=== PATIENT | female | born 1960 | race Caucasian/White ===

== ENCOUNTER 2017-07-19 14:56 | Inpatient (IN) | payer BC ==
[~2017-07-19] VITALS: Ht 162.6 cm; Wt 104.5 kg
[~2017-07-19 14:56] MED LIST: ABILIFY5 MG PO; BENADRYL 50MG C50 MG PO; BUMEX 1MG TA1 MG/TA1 PO; CELEXA 20MG20 MG/TAB PO; COLCRYS0.6 MG PO; LIPITOR 40MG TA40 MG PO; LISINOPRIL20 MG PO; TRAZODO50 MG PO; VOLTAREN 75 DR75 MG PO; WELLBUTRIN XL300 M1 PO; ZESTORETIC 25 M1 TAB PO; ZYRTEC 10MG
[2017-07-19] MEDS ORDERED: FOSAMAX 70MG TA70 MG (16:26)
[2017-07-19 16:42] LABS: BASO % 0.6 % (0.0-2.0); EOS # 0.1 (0.0-0.7); EOS % 1.3 % (0-4.0); GRAN % 65.1 % (42.2-75.2); LYMPH # 1.4 (1.2-3.4); MEAN CELL VOLUME 93 fl (80.0-100.0); MEAN CORPUSCULAR HGB CONC 34 g/dl (33.0-37.0); MONO # 0.6 (0.1-0.6); MONO % 9.5 % (1.7-9.3); PLATELET COUNT 195 K/mm3 (130-400); RED BLOOD COUNT 3.53 M/mm3 (4.10-5.30); REDCELL DISTRIBUTION WIDTH-CV 13.8 % (11.5-14.5); WHITE BLOOD COUNT 6.2 K/mm3 (4.8-10.8)
[2017-07-19 16:50] LABS: HEMATOCRIT 32.8 % (37.0-47.0); HEMOGLOBIN 11.2 g/dl (12.5-16.0); MEAN CORPUSCULAR HEMOGLOBIN 32 pg (27.0-31.0)
[2017-07-19 16:59] LABS: ADJUSTED CALCIUM 9.9 mg/dL (8.4-10.2); ALANINE AMINOTRANSFERASE 25 U/L (9-52); ALBUMIN 4.2 gm/dL (3.5-5.0); ALKALINE PHOSPHATASE 104 U/L (50-136); ANION GAP 18 mmol/L (7-16); BILIRUBIN,TOTAL 0.6 mg/dL (0.0-1.0); BLOOD UREA NITROGEN 80 mg/dL (7-17); CALCIUM 10.1 mg/dL (8.4-10.2); CARBON DIOXIDE 17 mmol/L (22-30); CHLORIDE 102 mmol/L (98-107); CREATININE, serum 3.06 mg/dL (0.52-1.25); GLUCOSE 95 mg/dL (74-106); MAGNESIUM 1.6 mg/dL (1.6-2.3); POTASSIUM 3.1 mmol/L (3.4-5.0); SODIUM 137 mmol/L (137-145); TOTAL PROTEIN 7.4 gm/dL (6.4-8.2)
[2017-07-19 17:12] LABS: TROPONIN-I < 0.012 ng/mL (0.000-0.034)
[2017-07-19 17:21] VITALS: BP 127/75; PULSE 92; TEMP 98.3
[2017-07-19 18:27] LABS: PH 5 (5-8); SQUAMOUS EPITHELIAL 0-2 /hpf; URINE APPEARANCE Clear; URINE BACTERIA None Seen /hpf; URINE BILIRUBIN Negative (NEGATIVE); URINE BLOOD Negative (NEGATIVE); URINE COLOR Yellow; URINE GLUCOSE Negative (NEGATIVE); URINE KETONE Negative (NEGATIVE); URINE RBC 0-2 /hpf; URINE UROBILINOGEN Negative (NEGATIVE)
[2017-07-19 19:23] VITALS: BP 89/47; PULSE 87; TEMP 97.8
[2017-07-19 19:56] VITALS: BP 135/63; PULSE 80; TEMP 98
[2017-07-19 22:27] VITALS: BP 88/53; PULSE 82; TEMP 97.5
[2017-07-19 23:58] VITALS: BP 152/58; PULSE 68; TEMP 98.1
[2017-07-20 03:37] VITALS: BP 91/47; PULSE 75; TEMP 98.1
[2017-07-20 07:04] LABS: BASO % 0.5 % (0.0-2.0); EOS # 0.1 (0.0-0.7); EOS % 2.5 % (0-4.0); GRAN % 49.9 % (42.2-75.2); LYMPH # 1.4 (1.2-3.4); LYMPH % 34.1 % (20.0-51.0); MEAN CELL VOLUME 94 fl (80.0-100.0); MEAN CORPUSCULAR HGB CONC 33 g/dl (33.0-37.0); MONO # 0.5 (0.1-0.6); MONO % 12.3 % (1.7-9.3); PLATELET COUNT 158 K/mm3 (130-400); RED BLOOD COUNT 3.37 M/mm3 (4.10-5.30); REDCELL DISTRIBUTION WIDTH-CV 13.7 % (11.5-14.5); WHITE BLOOD COUNT 4.1 K/mm3 (4.8-10.8)
[2017-07-20 07:08] LABS: HEMATOCRIT 31.6 % (37.0-47.0); HEMOGLOBIN 10.4 g/dl (12.5-16.0); MEAN CORPUSCULAR HEMOGLOBIN 31 pg (27.0-31.0)
[2017-07-20 07:15] LABS: ANION GAP 12 mmol/L (7-16); BLOOD UREA NITROGEN 64 mg/dL (7-17); CALCIUM 9.5 mg/dL (8.4-10.2); CARBON DIOXIDE 20 mmol/L (22-30); CHLORIDE 108 mmol/L (98-107); CREATININE, serum 1.67 mg/dL (0.52-1.25); GLUCOSE 96 mg/dL (74-106); MAGNESIUM 1.7 mg/dL (1.6-2.3); SODIUM 139 mmol/L (137-145)
[2017-07-20 07:17] LABS: POTASSIUM 2.8 mmol/L (3.4-5.0)
[2017-07-20 07:31] VITALS: BP 100/49; PULSE 74; TEMP 97.7
[2017-07-20 07:34] LABS: TROPONIN-I < 0.012 ng/mL (0.000-0.034)
[2017-07-20 11:32] VITALS: BP 108/59; PULSE 75; TEMP 98.3
[2017-07-20 15:27] VITALS: BP 103/58; BP 133/56; PULSE 61; PULSE 83; TEMP 97.6; TEMP 97.7
[2017-07-20 20:37] LABS: URINE 24 HOUR CREATININE 1.8 gm/24 hr (0.8-1.8)
[2017-07-20 20:38] LABS: CREATININE, serum 1.07 mg/dL (0.52-1.25); FRACTIONAL EXCRETION OF NA+ 2.3 %
[2017-07-20 20:47] VITALS: BP 110/57; PULSE 77; TEMP 98.6
[2017-07-20 22:37] VITALS: BP 108/56; PULSE 72; TEMP 98.5
[2017-07-21 03:52] VITALS: BP 109/63; PULSE 66; TEMP 98.2
[2017-07-21 06:12] VITALS: BP 141/82; PULSE 75; TEMP 98.3
[2017-07-21 07:29] VITALS: BP 100/56; PULSE 73; TEMP 98.4
[2017-07-21 10:04] VITALS: BP 122/71; PULSE 78; TEMP 98.1
[2017-07-21 11:42] VITALS: BP 110/65; PULSE 85; TEMP 98.3
[2017-07-21 15:47] VITALS: BP 105/73; PULSE 73; TEMP 98
== END 2017-07-21 17:50 | disposition home or self-care (01) | DRG 684 ==
LOC: MEDICAL 14:56
PROVIDERS: Physician Assistant
DX: N17.9 Acute kidney failure, unspecified (principal); I10 Essential (primary) hypertension; E87.6 Hypokalemia; F10.20 Alcohol dependence, uncomplicated; F32.9 Major depressive disorder, single episode, unspecified; Z79.1 Long term (current) use of non-steroidal anti-inflammatories (NSAID)
CPT/HCPCS: 99222-AI; 99233-AI; 99239; J0696; J1644; J3411; J3475; J7030; J7040

== ENCOUNTER 2017-09-26 20:39 | Emergency (ER) | payer BC ==
[~2017-09-26] VITALS: Ht 162.6 cm; Wt 104.5 kg
[~2017-09-26 20:39] MED LIST changes: +FOSAMAX 70MG TA70 MG
[2017-09-26 20:43] VITALS: BP 134/84; TEMP 98.3
[2017-09-26 21:32] VITALS: PULSE 85
== END 2017-09-26 21:34 | disposition home or self-care (01) ==
LOC: COL.ER 20:39
DX: I80.3 Phlebitis and thrombophlebitis of lower extremities, unspecified (principal); I10 Essential (primary) hypertension; E78.5 Hyperlipidemia, unspecified; F32.9 Major depressive disorder, single episode, unspecified; M10.9 Gout, unspecified

== ENCOUNTER → 2018-03-17 | Outpatient (CLI) | payer BC ==
[~2018-03-17] MED LIST changes: +AMBIEN 10MG10 MG PO; +BRINTELLIX10; +CALCIUM CARBON650 M2; +MULTI VITAMINS1 TAB PO; +PRILOTC; +ZOCOR 20MG20 MG PO
== END ==
LOC: MC.RAD 11:09
DX: Z12.31 Encounter for screening mammogram for malignant neoplasm of breast (principal)

== ENCOUNTER 2018-03-18 07:25 | Day surgery (SDC) | payer BC ==
[~2018-03-18] VITALS: Ht 162.6 cm; Wt 108.9 kg
[~2018-03-18 07:25] MED LIST changes: -AMBIEN 10MG10 MG PO; -BRINTELLIX10; -CALCIUM CARBON650 M2; -MULTI VITAMINS1 TAB PO; -PRILOTC; -ZOCOR 20MG20 MG PO
[2018-03-18] MEDS ORDERED: BRINTELLIX10 (07:47)
[2018-03-18] MEDS ORDERED: ZOCOR 20MG20 MG PO (07:48)
[2018-03-18] MEDS ORDERED: AMBIEN 10MG10 MG PO (07:48)
[2018-03-18] MEDS ORDERED: PRILOTC (07:48)
[2018-03-18] MEDS ORDERED: CALCIUM CARBON650 M2 (07:49)
[2018-03-18] MEDS ORDERED: MULTI VITAMINS1 TAB PO (07:49)
[2018-03-18 08:02] VITALS: BP 119/82; PULSE 85; TEMP 98.2
[2018-03-18 09:36] VITALS: BP 106/71; PULSE 67; TEMP 98.1
[2018-03-18 09:45] VITALS: BP 107/75; PULSE 70
[2018-03-18 10:00] VITALS: BP 103/66; PULSE 72
[2018-03-18 10:15] VITALS: BP 100/64; PULSE 72
[2018-03-18 14:18] VITALS: BP 108/70; PULSE 64
== END 2018-03-18 10:30 | disposition home or self-care (01) ==
LOC: SDCO 07:25
DX: Z12.11 Encounter for screening for malignant neoplasm of colon (principal); I10 Essential (primary) hypertension; E78.00 Pure hypercholesterolemia, unspecified; M81.0 Age-related osteoporosis without current pathological fracture; K57.30 Diverticulosis of large intestine without perforation or abscess without bleeding; K64.0 First degree hemorrhoids
CPT/HCPCS: OP; J2250; J3010; J7030

== ENCOUNTER → 2018-05-23 | Outpatient (CLI) | payer BC ==
[~2018-05-23] MED LIST changes: +AMBIEN 10MG10 MG PO; +BRINTELLIX10; +CALCIUM CARBON650 M2; +MULTI VITAMINS1 TAB PO; +PRILOTC; +ZOCOR 20MG20 MG PO
== END ==
LOC: COL.RAD 07:19
DX: R10.11 Right upper quadrant pain (principal); R10.13 Epigastric pain

== ENCOUNTER 2018-12-17 07:39 | Outpatient (CLI) | payer BC ==
[2018-12-17] VITALS (10 sets, daily range): BP systolic 99–126; BP diastolic 68–85; PULSE 63–69
[~2018-12-17] VITALS: Ht 162.6 cm; Wt 106.2 kg
[~2018-12-17 07:39] MED LIST changes: -CALCIUM CARBON650 M2; +CALCIUM CARBON650 M2 PO; +LAMICTAL 100MG100 MG PO; +LEXAPRO 10MG10 MG PO; -PRILOTC; +PRILOTC PO
[2018-12-17] MEDS ORDERED: LEXAPRO20 MG PO (08:00)
[2018-12-17] MEDS ORDERED: LAMICTAL 100MG100 MG PO (08:00)
[2018-12-17] MEDS ORDERED: FOSAMAX 70MG TA70 MG PO (08:01)
[2018-12-17] MEDS ORDERED: AMOXICILLIN 8751 TAB PO (08:13)
--- NOTE | 2018-12-17 08:50 | NUR ---
pt to ct per ambulation. Pt positioned prone on ct table with monitors applied and O2 on at 2l/nc.
--- NOTE | 2018-12-17 09:13 | NUR ---
specimen obtained by Dr Kaur and sent to lab in syringe. Specimen labeled.
--- NOTE | 2018-12-17 10:00 | NUR ---
Pt out to car per wheelchair denies complaints at this time. Pt up and into wheelchair without difficulty.
== END 2018-12-17 16:00 | disposition home or self-care (01) ==
LOC: COL.RAD 07:39
DX: J86.9 Pyothorax without fistula (principal)
CPT/HCPCS: J2250; J3010

== ENCOUNTER → 2019-03-30 | Outpatient (CLI) | payer BC ==
[~2019-03-30] MED LIST changes: +AMOXICILLIN 8751 TAB PO; +FOSAMAX 70MG TA70 MG PO; +LEXAPRO20 MG PO
== END ==
LOC: COL.RAD 08:27
DX: J86.9 Pyothorax without fistula (principal); K44.9 Diaphragmatic hernia without obstruction or gangrene
CPT/HCPCS: Q9967

== ENCOUNTER 2019-06-03 11:18 | Emergency (ER) | payer BC ==
[~2019-06-03] VITALS: Ht 162.6 cm; Wt 114.5 kg
[2019-06-03 11:22] VITALS: BP 109/76; TEMP 98.3
[2019-06-03 11:47] LABS: BASO # 0.1 (0.0-0.2); BASO % 0.6 % (0.0-2.0); EOS # 0.1 (0.0-0.7); EOS % 1.7 % (0-4.0); GRAN % 63.5 % (42.2-75.2); HEMATOCRIT 37.7 % (37.0-47.0); HEMOGLOBIN 12.2 g/dl (12.5-16.0); LYMPH % 25.9 % (20.0-51.0); MEAN CELL VOLUME 92 fl (80.0-100.0); MEAN CORPUSCULAR HEMOGLOBIN 30 pg (27.0-31.0); MEAN CORPUSCULAR HGB CONC 32 g/dl (33.0-37.0); MEAN PLATELET VOLUME 10.9 fl (7.4-10.4); MONO # 0.6 (0.1-0.6); MONO % 7.8 % (1.7-9.3); PLATELET COUNT 229 K/mm3 (130-400); RED BLOOD COUNT 4.08 M/mm3 (4.10-5.30); REDCELL DISTRIBUTION WIDTH-CV 14.6 % (11.5-14.5)
[2019-06-03 11:55] LABS: ALANINE AMINOTRANSFERASE 18 U/L (9-52); ALBUMIN 4.5 gm/dL (3.5-5.0); ALKALINE PHOSPHATASE 78 U/L (50-136); ANION GAP 12 mmol/L (7-16); AST,SGOT 26 U/L (15-37); BILIRUBIN,TOTAL 0.6 mg/dL (0.0-1.0); BLOOD UREA NITROGEN 23 mg/dL (7-17); CALCIUM 10.1 mg/dL (8.4-10.2); CARBON DIOXIDE 23 mmol/L (22-30); CHLORIDE 103 mmol/L (98-107); GLUCOSE 105 mg/dL (74-106); LIPASE 97 U/L (23-300); POTASSIUM 4.1 mmol/L (3.4-5.0); SODIUM 138 mmol/L (137-145); TOTAL PROTEIN 7.4 gm/dL (6.4-8.2)
[2019-06-03 12:10] LABS: TROPONIN-I < 0.012 ng/mL (0.000-0.035)
[2019-06-03] MEDS ORDERED: PROTONIX 40MG T40 MG PO (16:03)
[2019-06-03 16:20] VITALS: PULSE 90
== END 2019-06-03 16:21 | disposition home or self-care (01) ==
LOC: COL.ER 11:18
PROVIDERS: Emergency Medicine
DX: K44.9 Diaphragmatic hernia without obstruction or gangrene (principal); R07.89 Other chest pain; I10 Essential (primary) hypertension; E78.5 Hyperlipidemia, unspecified; Z87.891 Personal history of nicotine dependence
CPT/HCPCS: J7030; Q9967

== ENCOUNTER → 2019-07-20 | Outpatient (CLI) | payer BC ==
[~2019-07-20] MED LIST changes: +PROTONIX 40MG T40 MG PO
== END ==
LOC: COL.RAD 08:26
DX: K21.9 Gastro-esophageal reflux disease without esophagitis (principal); R14.0 Abdominal distension (gaseous); R14.2 Eructation
CPT/HCPCS: A9541

== ENCOUNTER 2019-07-30 22:46 | Emergency (ER) | payer BC ==
[~2019-07-30] VITALS: Ht 162.6 cm; Wt 118.2 kg
[2019-07-30 22:52] VITALS: TEMP 98.7
[2019-07-30 23:36] LABS: BASO % 0.4 % (0.0-2.0); EOS # 0.1 (0.0-0.7); EOS % 1.2 % (0-4.0); GRAN # 3.9 (1.4-6.5); GRAN % 57.3 % (42.2-75.2); HEMOGLOBIN 11.1 g/dl (12.5-16.0); LYMPH # 2.2 (1.2-3.4); LYMPH % 31.6 % (20.0-51.0); MEAN CELL VOLUME 93 fl (80.0-100.0); MEAN CORPUSCULAR HEMOGLOBIN 31 pg (27.0-31.0); MEAN CORPUSCULAR HGB CONC 33 g/dl (33.0-37.0); MEAN PLATELET VOLUME 10.3 fl (7.4-10.4); MONO # 0.6 (0.1-0.6); MONO % 8.8 % (1.7-9.3); PLATELET COUNT 193 K/mm3 (130-400); REDCELL DISTRIBUTION WIDTH-CV 13.8 % (11.5-14.5)
[2019-07-30 23:39] LABS: HEMATOCRIT 33.6 % (37.0-47.0)
[2019-07-30 23:48] LABS: ALANINE AMINOTRANSFERASE 15 U/L (9-52); ALBUMIN 4.2 gm/dL (3.5-5.0); ALCOHOL(ethanol),MEDICAL 119 mg/dL; ALKALINE PHOSPHATASE 83 U/L (50-136); ANION GAP 12 mmol/L (7-16); AST,SGOT 31 U/L (15-37); BILIRUBIN,TOTAL 0.3 mg/dL (0.0-1.0); BLOOD UREA NITROGEN 12 mg/dL (7-17); CALCIUM 9.3 mg/dL (8.4-10.2); CARBON DIOXIDE 25 mmol/L (22-30); CHLORIDE 101 mmol/L (98-107); CREATININE, serum 0.78 (0.52-1.25); GLUCOSE 123 mg/dL (74-106); SODIUM 138 mmol/L (137-145); TOTAL PROTEIN 6.8 gm/dL (6.4-8.2)
[2019-07-30 23:50] LABS: ACETAMINOPHEN < 10 ug/mL (10-30); POTASSIUM 2.9 mmol/L (3.4-5.0); SALICYLATE < 1.0 mg/dL
[2019-07-31 00:48] LABS: INR 0.9 (0.8-3.0); PROTHROMBIN TIME 10.7 SECONDS (9.7-12.8)
[2019-07-31 01:39] LABS: COLLECTION METHOD CLEAN CATCH
[2019-07-31 01:51] LABS: AMORPHOUS CRYSTAL Present /uL; MUCOUS Present /lpf; PH 6 (5-8); SQUAMOUS EPITHELIAL 0-2 /hpf; TRICYCLIC ANTIDEPRESS URINE NEGATIVE; URINE APPEARANCE Hazy; URINE BACTERIA None Seen /hpf; URINE BILIRUBIN Negative (NEGATIVE); URINE BLOOD Negative (NEGATIVE); URINE COLOR Yellow; URINE GLUCOSE Negative (NEGATIVE); URINE KETONE Negative (NEGATIVE); URINE LEUKOCYTE ESTERASE Negative (NEGATIVE); URINE NITRATE Negative (NEGATIVE); URINE PROTEIN(semi-quant) Negative (NEGATIVE); URINE UROBILINOGEN Negative (NEGATIVE)
[2019-07-31 04:07] VITALS: BP 122/81; PULSE 84
== END 2019-07-31 04:11 | disposition home or self-care (01) ==
LOC: COL.ER 22:46
PROVIDERS: Emergency Medicine
DX: S30.0XXA Contusion of lower back and pelvis, initial encounter (principal); F10.129 Alcohol abuse with intoxication, unspecified; E78.5 Hyperlipidemia, unspecified; I10 Essential (primary) hypertension; F32.9 Major depressive disorder, single episode, unspecified; E87.6 Hypokalemia; W19.XXXA Unspecified fall, initial encounter
CPT/HCPCS: J2405; J3010; J3480; J7030; Q9967

== ENCOUNTER → 2020-09-21 | Outpatient (CLI) | payer BC | LOC: COL.RAD 07:44 | DX: M51.16 Intervertebral disc disorders with radiculopathy, lumbar region (principal); M48.061 Spinal stenosis, lumbar region without neurogenic claudication ==

== ENCOUNTER 2021-03-20 15:28 | Emergency (ER) | payer SELFPAY ==
[~2021-03-20] VITALS: Ht 162.6 cm; Wt 93.6 kg
[2021-03-20 15:55] LABS: BASO # 0.1 (0.0-0.2); BASO % 1.2 % (0.0-2.0); EOS # 0.1 (0.0-0.7); EOS % 2.2 % (0-4.0); GRAN # 2.5 (1.4-6.5); HEMATOCRIT 37.3 % (37.0-47.0); HEMOGLOBIN 12.4 g/dl (12.5-16.0); LYMPH # 1.7 (1.2-3.4); LYMPH % 33.3 % (20.0-51.0); MEAN CELL VOLUME 101 fl (80.0-100.0); MEAN CORPUSCULAR HEMOGLOBIN 33 pg (27.0-31.0); MEAN CORPUSCULAR HGB CONC 33 g/dl (33.0-37.0); MEAN PLATELET VOLUME 9.8 fl (7.4-10.4); MONO # 0.6 (0.1-0.6); MONO % 11.7 % (1.7-9.3); PLATELET COUNT 248 K/mm3 (130-400); RED BLOOD COUNT 3.71 M/mm3 (4.10-5.30); REDCELL DISTRIBUTION WIDTH-CV 13.4 % (11.5-14.5)
[2021-03-20 16:06] LABS: ALANINE AMINOTRANSFERASE 43 U/L (4-34); ALBUMIN 3.7 gm/dL (3.5-5.0); ALCOHOL(ethanol),MEDICAL 243 mg/dL; ALKALINE PHOSPHATASE 148 U/L (50-136); ANION GAP 11 mmol/L (7-16); AST,SGOT 81 U/L (15-37); BILIRUBIN,TOTAL < 0.1 mg/dL (0.0-1.0); BLOOD UREA NITROGEN 12 mg/dL (7-17); CARBON DIOXIDE 21 mmol/L (22-30); CHLORIDE 102 mmol/L (98-107); CREATININE, serum 1.02 (0.52-1.25); GLUCOSE 111 mg/dL (74-106); POTASSIUM 3.3 mmol/L (3.4-5.0); SODIUM 135 mmol/L (137-145); TOTAL PROTEIN 6.7 gm/dL (6.4-8.2)
[2021-03-20 16:07] LABS: ACETAMINOPHEN < 10 ug/mL (10-30); SALICYLATE < 1.0 mg/dL
[2021-03-20 16:28] LABS: COLLECTION METHOD CLEAN CATCH
[2021-03-20 16:50] LABS: MUCOUS Present /lpf; PH 6 (5-8); SQUAMOUS EPITHELIAL 0-2 /hpf; URINE APPEARANCE Clear; URINE BACTERIA None Seen /hpf; URINE BILIRUBIN Negative (NEGATIVE); URINE BLOOD 1+ (NEGATIVE); URINE COLOR Yellow; URINE GLUCOSE Negative (NEGATIVE); URINE KETONE Negative (NEGATIVE); URINE LEUKOCYTE ESTERASE Negative (NEGATIVE); URINE NITRATE Negative (NEGATIVE); URINE PROTEIN(semi-quant) Negative (NEGATIVE); URINE RBC None Seen /hpf; URINE UROBILINOGEN Negative (NEGATIVE)
[2021-03-20 18:23] LABS: TRICYCLIC ANTIDEPRESS URINE NEGATIVE
[2021-03-20] MEDS ORDERED: PRINZIDE 25 MG-1 TAB PO (19:11)
[2021-03-20] MEDS ORDERED: CARAFATE 1GM1 G PO (19:12)
[2021-03-20] MEDS ORDERED: XANAX 0.5MG0.5 MG PO (19:12)
[2021-03-20] MEDS ORDERED: LAMICTAL XR200 MG PO (19:13)
[2021-03-20] MEDS ORDERED: LEXAPRO20 MG PO (19:13)
[2021-03-20] MEDS ORDERED: ZOHYDRO ER20 MG PO (19:20)
[2021-03-20] MEDS ORDERED: ADIPEX-P37.5 MG PO (20:47)
[2021-03-20] MEDS ORDERED: ACIPHEX20 MG PO (20:47)
[2021-03-21 01:18] VITALS: BP 109/66; PULSE 70; TEMP 98.5
== END 2021-03-21 01:26 | disposition home or self-care (01) ==
LOC: COL.ER 15:28
PROVIDERS: Nurse Practitioner
DX: S61.512A Laceration without foreign body of left wrist, initial encounter (principal); F10.129 Alcohol abuse with intoxication, unspecified; F32.9 Major depressive disorder, single episode, unspecified; Z87.891 Personal history of nicotine dependence; X78.9XXA Intentional self-harm by unspecified sharp object, initial encounter

== ENCOUNTER 2021-10-07 13:45 | Emergency (ER) | payer BC ==
[~2021-10-07] VITALS: Ht 162.6 cm; Wt 93.2 kg
[~2021-10-07 13:45] MED LIST changes: +ACIPHEX20 MG PO; +ADIPEX-P37.5 MG PO; +CARAFATE 1GM1 G PO; +LAMICTAL XR200 MG PO; +PRINZIDE 25 MG-1 TAB PO; +XANAX 0.5MG0.5 MG PO; +ZOHYDRO ER20 MG PO
[2021-10-07 14:28] VITALS: TEMP 98.5
[2021-10-07 14:51] LABS: BASO # 0.1 K/mm3 (0.0-0.2); BASO % 1.3 % (0.0-2.0); EOS # 0.1 K/mm3 (0.0-0.7); EOS % 2.1 % (0-4.0); GRAN # 1.6 K/mm3 (1.4-6.5); GRAN % 41.6 % (42.2-75.2); HEMATOCRIT 38.9 % (37.0-47.0); HEMOGLOBIN 13.5 g/dl (12.5-16.0); LYMPH # 1.7 K/mm3 (1.2-3.4); LYMPH % 46.5 % (20.0-51.0); MEAN CELL VOLUME 95 fl (80.0-100.0); MEAN CORPUSCULAR HEMOGLOBIN 33 pg (27.0-31.0); MEAN CORPUSCULAR HGB CONC 35 g/dl (33.0-37.0); MEAN PLATELET VOLUME 9.9 fl (7.4-10.4); MONO # 0.3 K/mm3 (0.1-0.6); PLATELET COUNT 189 K/mm3 (130-400); RED BLOOD COUNT 4.11 M/mm3 (4.10-5.30); REDCELL DISTRIBUTION WIDTH-CV 14.1 % (11.5-14.5)
[2021-10-07 15:14] LABS: ALBUMIN 3.7 gm/dL (3.5-5.0); BILIRUBIN,TOTAL 0.9 mg/dL (0.2-1.2); C-REACTIVE PROTEIN 0.03 mg/dL (0.00-0.50); CALCIUM 9.4 mg/dL (8.4-10.2); CREATININE, serum 0.8 mg/dL (0.57-1.11); POTASSIUM 3.8 mmol/L (3.5-4.5); TOTAL PROTEIN 6.7 gm/dL (6.2-8.1)
[2021-10-07 15:20] LABS: COLLECTION METHOD CLEAN CATCH
[2021-10-07 15:28] LABS: MUCOUS Present /lpf; PH 5 (5-8); SQUAMOUS EPITHELIAL 0-2 /hpf; URINE APPEARANCE Clear; URINE BACTERIA Rare /hpf; URINE BILIRUBIN Negative (NEGATIVE); URINE BLOOD Negative (NEGATIVE); URINE COLOR Yellow; URINE GLUCOSE Negative (NEGATIVE); URINE KETONE Negative (NEGATIVE); URINE LEUKOCYTE ESTERASE Negative (NEGATIVE); URINE NITRATE Negative (NEGATIVE); URINE PROTEIN(semi-quant) Negative (NEGATIVE); URINE RBC None Seen /hpf; URINE UROBILINOGEN Negative (NEGATIVE)
[2021-10-07 16:41] VITALS: BP 138/94; PULSE 87
== END 2021-10-07 16:41 | disposition home or self-care (01) ==
LOC: COL.ER 13:45
PROVIDERS: Family Medicine
DX: F10.229 Alcohol dependence with intoxication, unspecified (principal); F41.9 Anxiety disorder, unspecified; M79.602 Pain in left arm; I10 Essential (primary) hypertension; Z79.899 Other long term (current) drug therapy; Y90.4 Blood alcohol level of 80-99 mg/100 ml; Z20.822 Contact with and (suspected) exposure to COVID-19
CPT/HCPCS: J2060; J7030

== ENCOUNTER 2023-09-05 13:20 | Emergency (ER) | payer OTHER ==
[~2023-09-05] VITALS: Ht 162.6 cm; Wt 102.3 kg
[~2023-09-05 13:20] MED LIST changes: +B-121000 MCG PO; +BUSPAR DIVIDOSE15 MG PO; +DESYREL 100MG100 MG PO; +DUO-KAPS1 CAP PO; +K-DUR20 MEQ PO; +MOTRIN 200200 MG/TAB PO; +THIAMINE 1100 MG/TAB PO; +VITAMIN D31000 I1 PO
[2023-09-05 13:45] VITALS: TEMP 98
--- NOTE | 2023-09-05 15:39 | NUR ---
MECHANISM INSPECTOR received T/C from ED Nurse this afternoon. Pt requested to speak with SW about [facility] resources. MECHANISM INSPECTOR met with pt in her ED room, and she was quite anxious, but talkative, forth-coming as well as oriented to person, time, place and situation. Pt appeared s/w disheveled, stating, "I'm an alcoholic." She admits to drinking two shots of vokda ( 4 ounce bottles) before she fell and fx'd her wrist earlier today. She explained she was trying to let her dtr's dog out and fell down the stairs. Pt admits to drinking 5 shots of vokda daily for the past 40 years. States she began drinking @ age 22, explaining her BF introduced alcohol to her. She further shared her relationship with him was "bad," and she eventually ended it. Pt never , but she has one adult daughter, who resides in [place]. Pt lives with dtr and son-in-law. Pt went on to say that her constant drinking caused her to lose her apartment 6 weeks ago. Her dtr and son-in-law do not drink and pt stated, "I need to stop drinking before they throw me out." When asked if she had been sober in her 40 yrs of drinking, pt stated her longest pd of soberity 20 yrs ago for 6 yrs. She stated 4 yrs ago she spent a month @ [facility] and managed to stay sober for 6 months. Pt denies h/o DT's or seizures, but admits to episodes of blackouts. Pt denies DWI's, states she drinks at home. Pt inquired about obtaining alcohol referral and assessment and MECHANISM INSPECTOR gave her contact info to [facility], ph# , Explained once she completes the telephone screening, an appropriate rehab prog will be discussed with her. Pt verbalized understanding, and she had no futher questions. LIU intervention completed.
[2023-09-05] MEDS ORDERED: NORCO 325 MG-51 TAB PO (15:50)
[2023-09-05 16:00] VITALS: BP 127/90; PULSE 74
== END 2023-09-05 16:00 | disposition home or self-care (01) ==
LOC: COL.ER 13:20
DX: S52.571A Other intraarticular fracture of lower end of right radius, initial encounter for closed fracture (principal); S52.611A Displaced fracture of right ulna styloid process, initial encounter for closed fracture; W10.9XXA Fall (on) (from) unspecified stairs and steps, initial encounter; Y93.K1 Activity, walking an animal

== ENCOUNTER 2023-12-27 17:41 | Emergency (ER) | payer OTHER ==
[~2023-12-27] VITALS: Ht 154.9 cm; Wt 100.9 kg
[~2023-12-27 17:41] MED LIST changes: +NORCO 325 MG-51 TAB PO
[2023-12-27 18:33] LABS: BASO # 0.1 K/mm3 (0.0-0.2); BASO % 0.7 % (0.0-2.0); EOS # 0.1 K/mm3 (0.0-0.7); EOS % 1.8 % (0.0-4.0); GRAN # 4.3 K/mm3 (1.4-6.5); GRAN % 59.8 % (42.2-75.2); HEMATOCRIT 40.7 % (37.0-47.0); LYMPH # 1.9 K/mm3 (1.2-3.4); LYMPH % 26.8 % (20.0-51.0); MEAN CELL VOLUME 98 fl (80.0-100.0); MEAN CORPUSCULAR HEMOGLOBIN 31 pg (27-31); MEAN CORPUSCULAR HGB CONC 32 g/dl (33.0-37.0); MEAN PLATELET VOLUME 10.7 fl (7.4-10.4); MONO # 0.8 K/mm3 (0.1-0.6); MONO % 10.6 % (1.7-9.3); PLATELET COUNT 195 K/mm3 (130-400); RED BLOOD COUNT 4.15 M/mm3 (4.10-5.30); REDCELL DISTRIBUTION WIDTH-CV 14.4 % (11.5-14.5)
[2023-12-27 18:48] LABS: ALBUMIN 3.7 gm/dL (3.4-4.8); BILIRUBIN,TOTAL 0.2 mg/dL (0.2-1.2); CALCIUM 9.2 mg/dL (8.4-10.2); CREATININE, serum 0.71 mg/dL (0.57-1.11); POTASSIUM 3.5 mmol/L (3.5-4.5); TOTAL PROTEIN 6.7 gm/dL (6.2-8.1)
[2023-12-27 19:01] LABS: TRICYCLIC ANTIDEPRESS URINE NEGATIVE (NEGATIVE)
[2023-12-27 20:11] VITALS: BP 121/81; PULSE 65; TEMP 97.4
== END 2023-12-27 20:11 | disposition home or self-care (01) ==
LOC: COL.ER 17:41
PROVIDERS: Nurse Practitioner
DX: S00.83XA Contusion of other part of head, initial encounter (principal); S80.212A Abrasion, left knee, initial encounter; F10.129 Alcohol abuse with intoxication, unspecified; Y90.8 Blood alcohol level of 240 mg/100 ml or more; W18.30XA Fall on same level, unspecified, initial encounter; Y92.009 Unspecified place in unspecified non-institutional (private) residence as the place of occurrence of the external cause
CPT/HCPCS: J7030

== ENCOUNTER 2024-03-29 15:42 | Emergency (ER) | payer OTHER ==
[~2024-03-29] VITALS: Ht 162.6 cm; Wt 90.9 kg
[2024-03-29 15:49] VITALS: TEMP 99.1
[2024-03-29 16:15] VITALS: BP 124/77; PULSE 79
[2024-03-29] MEDS ORDERED: Folic Acid 1 MG,Thiamine 200 MG in NS 1,000 ML IV ONE (16:15)
[2024-03-29] MEDS ORDERED: Pantoprazole 40 MG in NS 10 ML IV ONE (16:15)
[2024-03-29 16:26] LABS: BASO % 0.9 % (0.0-2.0); EOS # 0.1 K/mm3 (0.0-0.7); EOS % 1.8 % (0.0-4.0); GRAN # 1.5 K/mm3 (1.4-6.5); GRAN % 43.2 % (42.2-75.2); HEMOGLOBIN 11.6 g/dl (12.5-16.0); LYMPH # 1.3 K/mm3 (1.2-3.4); MEAN CELL VOLUME 91 fl (80.0-100.0); MEAN CORPUSCULAR HEMOGLOBIN 30 pg (27-31); MEAN CORPUSCULAR HGB CONC 33 g/dl (33.0-37.0); MEAN PLATELET VOLUME 10.6 fl (7.4-10.4); MONO # 0.5 K/mm3 (0.1-0.6); MONO % 15.8 % (1.7-9.3); PLATELET COUNT 169 K/mm3 (130-400); REDCELL DISTRIBUTION WIDTH-CV 17.3 % (11.5-14.5)
[2024-03-29 16:27] LABS: HEMATOCRIT 35.3 % (37.0-47.0)
[2024-03-29 16:44] LABS: ALBUMIN 3.1 g/dL (3.4-4.8); BILIRUBIN,TOTAL 0.3 mg/dL (0.2-1.2); CALCIUM 8.7 mg/dL (8.4-10.2); CREATININE, serum 0.71 mg/dL (0.57-1.11); POTASSIUM 3.9 mEq/L (3.5-4.5); TOTAL PROTEIN 6.5 g/dl (6.2-8.1)
== END 2024-03-29 16:34 | disposition left against medical advice (07) ==
LOC: COL.ER 15:42
PROVIDERS: Emergency Medicine
DX: F10.129 Alcohol abuse with intoxication, unspecified (principal); Y90.8 Blood alcohol level of 240 mg/100 ml or more
CPT/HCPCS: C9113

== ENCOUNTER 2024-07-08 08:59 | Inpatient (IN) | payer OTHER ==
[2024-07-08] VITALS (422 sets, daily range): BP systolic 75–104; BP diastolic 45–74; PULSE 74–92; TEMP 98–98.3; O2SAT 77–98
[~2024-07-08] VITALS: Ht 162.6 cm; Wt 97.5 kg
[2024-07-08] MEDS ORDERED: LR 1,000 ML IV ONE (09:21)
[2024-07-08] MEDS ORDERED: LR 1,000 ML IV SCH (09:30)
[2024-07-08 09:52] LABS: INR 1.2 (0.8-3.0); PROTHROMBIN TIME 13.3 SECONDS (9.7-12.8)
[2024-07-08 09:58] LABS: HEMATOCRIT 34.7 % (37.0-47.0); HEMOGLOBIN 10.7 g/dl (12.5-16.0); MEAN CELL VOLUME 108 fl (80.0-100.0); MEAN CORPUSCULAR HEMOGLOBIN 33 pg (27-31); MEAN CORPUSCULAR HGB CONC 31 g/dl (33.0-37.0); MEAN PLATELET VOLUME 11.4 fl (7.4-10.4); PLATELET COUNT 269 K/mm3 (130-400); REDCELL DISTRIBUTION WIDTH-CV 20.2 % (11.5-14.5)
[2024-07-08 10:00] LABS: ALANINE AMINOTRANSFERASE 55 U/L (0-55); ALBUMIN 2.7 g/dL (3.4-4.8); ALKALINE PHOSPHATASE 315 U/L (40-150); ANION GAP 18 mmol/L (7-16); AST,SGOT 159 U/L (5-34); BILIRUBIN,TOTAL 10.4 mg/dL (0.2-1.2); BLOOD UREA NITROGEN 37 mg/dL (10-20); CALCIUM 9.3 mg/dL (8.4-10.2); GLUCOSE 112 mg/dL (70-99); LIPASE 51 U/L (8-78); POTASSIUM 3.3 mEq/L (3.5-4.5); SODIUM 128 mEq/L (136-145); TOTAL PROTEIN 5.8 g/dl (6.2-8.1)
[2024-07-08 10:03] LABS: ALCOHOL(ethanol),MEDICAL < 10 mg/dL (0-10); CHLORIDE 88 mEq/L (98-107)
[2024-07-08 10:06] LABS: TROPONIN-I 0.013 ng/mL (0.00-0.033)
[2024-07-08 10:57] LABS: ANISOCYTOSIS 2+; HYPOCHROMIA 1+; LYMPHOCYTE 10 % (20.0-51.0); NEUTROPHILS 81 % (42.0-75.2); PLATELET ESTIMATE NORMAL (NORMAL)
[2024-07-08 10:58] LABS: TEAR DROP CELLS 1+
[2024-07-08 11:05] LABS: COLLECTION METHOD CLEAN CATCH
[2024-07-08] MEDS ORDERED: Cefepime 2 G in Water For Injection,Sterile 20 ML IV ONE (11:45)
[2024-07-08 11:50] LABS: PH 5.5 (5.0-8.5); URINE APPEARANCE Hazy (CLEAR/HAZY); URINE COLOR DARK YELLOW (YELLOW); URINE GLUCOSE Negative (NEGATIVE); URINE KETONE TRACE (NEGATIVE); URINE PROTEIN(semi-quant) 1+ (NEGATIVE)
[2024-07-08 11:51] LABS: URINE BLOOD TRACE-INTACT (NEGATIVE); URINE NITRATE Negative (NEGATIVE)
[2024-07-08 11:53] LABS: URINE WBC 0-2 /hpf (0-2)
--- NOTE | 2024-07-08 12:40 | NUR ---
PATIENT ARRIVED TO ICU ROOM 4 AT 1240. PATIENT WAS ALERT AND ORIENTED. LEVOPHED HOOKED UP AND RUNNING. PATIENT REHOOKED UP TO VITAL SIGN AND TELEMETRY MACHINE UPON ARRIVAL.
[2024-07-08] MEDS ORDERED: COMPLETE MULTI1 TAB PO (13:16)
[2024-07-08] MEDS ORDERED: DESYREL DIVIDO150 M1 PO (13:17)
[2024-07-08] MEDS ORDERED: ACIPHEX20 MG PO (13:17)
[2024-07-08] MEDS ORDERED: Ondansetron 4 MG/2 ML VIAL IV PRN (13:30)
[2024-07-08] MEDS ORDERED: LORazepam 2 MG/ML 1 ML VIAL IV PRN (13:30)
[2024-07-08] MEDS ORDERED: Potassium Bicarbonate/Citrate 20 MEQ Effervescent TAB PO ONE (13:30)
[2024-07-08] MEDS ORDERED: NS 1,000 ML IV SCH (13:30)
[2024-07-08] MEDS ORDERED: Mag/Al Hydrox/Simeth Susp 30 ML CUP PO PRN (13:30)
[2024-07-08] MEDS ORDERED: Thiamine 100 MG TAB PO SCH (14:00)
[2024-07-08 16:33] LABS: CALCIUM 8.1 mg/dL (8.4-10.2); CREATININE, serum 2.61 mg/dL (0.57-1.11); POTASSIUM 3.5 mEq/L (3.5-4.5)
--- NOTE | 2024-07-08 16:48 | NUR ---
THIS NURSE RECIEVED A CRITICAL VALUE OF CHLORIDE, 87, FROM CHEM LAB, ISAIAH MCKINNON @ [id number].
[2024-07-08] MEDS ORDERED: Magnesium Oxide 400 MG TAB PO SCH (17:00)
[2024-07-08] MEDS ORDERED: Multivitamin TAB PO SCH (17:00)
[2024-07-08 17:07] LABS: CREATININE, serum 2.57 mg/dL (0.57-1.11)
[2024-07-08 17:08] LABS: FRACTIONAL EXCRETION OF NA+ 0.72 %
--- NOTE | 2024-07-08 20:27 | NUR ---
PATIENT RESTING IN BED WITH EYES OPEN, A&OX4. PT C/O HEADACHE STATES 6/10, DOES NOT WANT MEDICATION FOR THE PAIN, JUST REQUEST THE LIGHT BE TURNED OFF. UPON PALPATING ABD PT REPORT PAIN 5/10 IN RUQ, 2/10 IN THE REMAINING 3 QUANDRANTS, DESCRIBES THIS A DULL ACHE, AND ONLY BOTHERS HER WHEN I AM PALPATING THE AREA. CIWA SCORE OF 10, 1MG OF ATIVAN GIVEN. BED IN LOWEST POSITION, CALL LIGHT IN REACH
[2024-07-08] MEDS ORDERED: traZODone 100 MG TAB PO SCH (21:00)
[2024-07-08] MEDS ORDERED: Simvastatin 20 MG **** subs to Atorvastatin 10 MG PO SCH (21:00)
[2024-07-08] MEDS ORDERED: Atorvastatin 10 MG TAB PO SCH (21:00)
[2024-07-09] VITALS (700 sets, daily range): BP systolic 75–103; BP diastolic 59–67; PULSE 73–90; TEMP 97.6–98.3; O2SAT 81–100
[2024-07-09] MEDS ORDERED: Benzonatate 100 MG CAP PO SCH (01:15)
[2024-07-09] MEDS ORDERED: Pantoprazole 40 MG in NS 10 ML IV SCH (01:45)
[2024-07-09 03:10] LABS: MEAN CELL VOLUME 107 fl (80.0-100.0); MEAN CORPUSCULAR HGB CONC 31 g/dl (33.0-37.0); MEAN PLATELET VOLUME 11.3 fl (7.4-10.4); PLATELET COUNT 193 K/mm3 (130-400); RED BLOOD COUNT 2.56 M/mm3 (4.10-5.30); REDCELL DISTRIBUTION WIDTH-CV 20.2 % (11.5-14.5)
[2024-07-09 03:17] LABS: HEMATOCRIT 27.5 % (37.0-47.0); HEMOGLOBIN 8.5 g/dl (12.5-16.0); MEAN CORPUSCULAR HEMOGLOBIN 33 pg (27-31)
[2024-07-09 03:31] LABS: ALBUMIN 2.1 g/dL (3.4-4.8); CALCIUM 7.9 mg/dL (8.4-10.2); CREATININE, serum 1.99 mg/dL (0.57-1.11); MAGNESIUM 1.6 mg/dL (1.6-2.6); TOTAL PROTEIN 4.5 g/dl (6.2-8.1)
[2024-07-09 03:40] LABS: POTASSIUM 2.8 mEq/L (3.5-4.5)
[2024-07-09 03:49] LABS: BILIRUBIN,TOTAL 9.3 mg/dL (0.2-1.2)
[2024-07-09] MEDS ORDERED: Potassium Chloride 100 ML IV ONE ×4 (04:00→20:45)
[2024-07-09 04:04] LABS: BAND 1 % (0-10); EOSINOPHIL 2 % (0-4); METAMYELOCYTE 1 % (0-0); NEUTROPHILS 72 % (42.0-75.2)
[2024-07-09 04:05] LABS: ANISOCYTOSIS 2+; HYPOCHROMIA 2+; PLATELET ESTIMATE NORMAL (NORMAL)
[2024-07-09 04:06] LABS: STOMATOCYTE 2+
[2024-07-09 04:08] LABS: LYMPHOCYTE 10 % (20.0-51.0)
[2024-07-09 06:43] LABS: INR 1.3 (0.8-3.0); PROTHROMBIN TIME 14.3 SECONDS (9.7-12.8)
[2024-07-09] MEDS ORDERED: Folic Acid 1 MG TAB PO SCH (09:00)
[2024-07-09] MEDS ORDERED: busPIRone 7.5 MG TABLET PO SCH (09:00)
[2024-07-09] MEDS ORDERED: Escitalopram 10 MG TAB PO SCH (09:00)
[2024-07-09] MEDS ORDERED: *Potassium Replacement Protocol MC SCH (09:45)
[2024-07-09] MEDS ORDERED: Magnesium Sulfate 2 GM/50 ML IV SOLN IV SCH (10:30)
--- NOTE | 2024-07-09 12:38 | NUR ---
observation: rubber mill operator introduced self. Pt mentioned that she was doing ok. Pt mentioned that she was recovering from being an alcholic for, four years. Pt expressed that she wanted prayer. Pt mentioned that she didn't want her family to know that she is in the hospital at this time. Pt expressed that they are not at good terms at this time. Interventions: rubber mill operator provided active listening and empathized with the pt. rubber mill operator provided compassionate touch. Lumber Buyer offered prayer of healing and strength for the pt. outcome: rubber mill operator demonstrated care and concern. chaplainestablished rapport and connectedness. Also helped them feel comforted.
--- NOTE | 2024-07-09 13:43 | NUR ---
THIS NURSE OFFERED AND RECOMMENDED THE PATIENT TO GET UP TO CHAIR TO EAT LUNCH. PATIENT REFUSED WITHOUT MUCH DICUSSION OF THE SUBJECT. PATIENT ENCOURAGED TO CONTINUE TO MOVE HER MUSCLES AND REGAIN STRENGTH. PATIENT EDUCATED ON THE RISKS OF NOT MOVING HER BODY, BUT CONTINUED TO REFUSE. PATIENT ALERT AND ORIENTED X4. SEEMING FATIGUED. PATIENT STATED SHE WAS OKAY WITH STAYING IN THE HOSPITAL FOR A COUPLE MORE DAYS SHE DOES NOT WANT TO GO HOME AND CARE FOR HERSELF, INDEPENDENTLY.
[2024-07-09] MEDS ORDERED: Magnesium Sulfate 1 GM/100 ML IV Soln IV SCH (14:00)
--- NOTE | 2024-07-09 19:18 | NUR ---
PATIENT RECIEVED A CIWA SCORE OF 8. ATIVAN WAS GIVEN ONCE. PATIENT CURRENTLY SCORING A 0-2 ON CIWA SCALE. PATIENT CONTINUING TO REFUSE TO GET OUT OF BED. PATIENT IS STILL ON LEVOPHED, WE HAVE BEEN UNABLE TO TITRATE DOWN ANY FURTHER WITHOUT A CONTINUAL DROP IN BP AND MAP. REPORT GIVEN TO AMBER.
--- NOTE | 2024-07-09 23:07 | NUR ---
AT TIME OF INITIAL ASSESSMENT PATIENT LAYING IN BED, RESTLESS AND REPORTS MILD ANXIETY, TREMORS, AND A "WEIRD FEELING" IN HER HEAD. PATIENT GIVEN 1MG ATIVAN PER [facility] PROTOCOL. CURRENTLY PATIENT IS NOT RESTLESS, NOT REPORTING TREMORS AND NO LONGER HAS THE "WEIRD FEELING" IN HER HEAD. CALL LIGHT IN REACH BED IN LOWEST POSITION
[2024-07-10] VITALS (1208 sets, daily range): BP systolic 92–112; BP diastolic 65–76; PULSE 76–92; TEMP 97.6–98.1; O2SAT 77–100
--- NOTE | 2024-07-10 05:09 | NUR ---
DURING 0400 ROUNDS, NOTICED PATIENT BREATHING PATTERN HAD CHANGED TO MORE OF A LABORED BREATHING PATTERN. RR WAS 20 A MIN, SHE HAD NO C/O SOA. AT THIS TIME O2 WAS GOING BETWEEN 93-96%. PATIENT ALSO ONLY HAD 250ML OF URINE OUTPUT DURING THIS ENTIRE SHIFT. PATIENT WAS DROWSIER THAN SHE HAD BEEN WELL. DR. PENA NOTIFIED, LAB ORDERS TO FOLLOW
[2024-07-10 06:08] LABS: MEAN CELL VOLUME 109 fl (80.0-100.0); MEAN CORPUSCULAR HGB CONC 31 g/dl (33.0-37.0); MEAN PLATELET VOLUME 10.7 fl (7.4-10.4); PLATELET COUNT 189 K/mm3 (130-400); RED BLOOD COUNT 2.39 M/mm3 (4.10-5.30); REDCELL DISTRIBUTION WIDTH-CV 20.4 % (11.5-14.5)
[2024-07-10 06:09] LABS: MEAN CORPUSCULAR HEMOGLOBIN 33 pg (27-31)
[2024-07-10 06:10] LABS: ALBUMIN 1.9 g/dL (3.4-4.8); BILIRUBIN,TOTAL 8.5 mg/dL (0.2-1.2); CALCIUM 6.5 mg/dL (8.4-10.2); CREATININE, serum 1.03 mg/dL (0.57-1.11); POTASSIUM 3.1 mEq/L (3.5-4.5); TOTAL PROTEIN 3.9 g/dl (6.2-8.1)
[2024-07-10] MEDS ORDERED: Potassium Chloride 100 ML IV SCH (06:30)
[2024-07-10 06:37] LABS: ANISOCYTOSIS 3+; BAND 5 % (0-10); LYMPHOCYTE 14 % (20.0-51.0); METAMYELOCYTE 4 % (0-0); NEUTROPHILS 68 % (42.0-75.2); PLATELET ESTIMATE NORMAL (NORMAL)
[2024-07-10 06:38] LABS: HYPOCHROMIA 2+
--- NOTE | 2024-07-10 08:00 | NUR ---
Pt resting comfortably in bed. VSS. IV medications infusing through PICC line without difficulty. Morning medications administered without difficulty. Pt up to chair and back to bed with PT/OT. Dr. Cortes and Dr. Bautista made rounds on pt. Pt does not complain of pain or discomfort at this time. Attemping to wean off of Levophed per hospitalist orders. Will continue to monitor blood pressure and titrate Levophed accordingly.
[2024-07-10] MEDS ORDERED: *Potassium Replacement Protocol MC SCH (10:45)
[2024-07-10] MEDS ORDERED: NS 500 ML IV ONE (10:45)
[2024-07-10] MEDS ORDERED: Potassium Bicarbonate/Citrate 20 MEQ Effervescent TAB PO SCH (10:45)
[2024-07-10] MEDS ORDERED: Magnesium Sulfate 4% 50 ML IV ONE (10:45)
--- NOTE | 2024-07-10 11:06 | NUR ---
community mental health social worker attended clinical rounding and met with patient to complete initial discharge assessment. Patient states that she lives alone in an apartment in [place] and has been independent with activities of daily living and utilizing a walker. Patient confirms that Dr Dasilva is her primary care provider and that Renay Blair [phone] is her daughter. Patient declines worker's offer to contact daughter and notify that patient is in the hospital. Patient states that she does not have advance directives and worker provided written and verbal information. Worker left copies of advance directives with patient and offered to assist with completion, if patient wished to do so. Patient states that she has been to alcohol inpatient treatment a couple of years ago at [facility] and doesn't know if she is interested in treatment at this time. Patient denies concerns related to discharge planning home. Physical therapy is working with patient and case management will continue to follow to assist with securing a safe discharge plan. Discharge plan: Home alone to her apartment.
--- NOTE | 2024-07-10 11:50 | NUR ---
Attempted to call Dr. Dasilva's office at [facility] to obtain last 6 months worth of vital signs per doctor order. Office did not answer, so a message was left inquiring about getting vital signs faxed to [facility].
[2024-07-10] MEDS ORDERED: Albumin (Human) 25 G/100 ML IVPB IV PRN (12:00)
--- NOTE | 2024-07-10 15:48 | NUR ---
airplane woodworker met with patent and advised that therapy is recommending physical therapy rehab. Worker discussed long term and home health services and provided the Medicare.gov share options to review. Patient is open to physical rehab/home health if needed. Discharge plan: Home, however may need long term facility or home health.
--- NOTE | 2024-07-10 19:30 | NUR ---
Received report from SOURAV Bergman and Abi Winters RN. Pt is alert and resting in bed with the call light within reach. Pt has IVF running at this time. Esposito is in place with no kinks in tubing. Pt's vitals are stable at this time. Will continue with pt care.
[2024-07-11] VITALS (593 sets, daily range): BP systolic 92–121; BP diastolic 63–80; PULSE 82–101; TEMP 97.6–98.6; O2SAT 87–98
[2024-07-11] MEDS ORDERED: NS 500 ML IV ONE (02:15)
[2024-07-11 06:02] LABS: MEAN CELL VOLUME 111 fl (80.0-100.0); MEAN CORPUSCULAR HGB CONC 31 g/dl (33.0-37.0); PLATELET COUNT 153 K/mm3 (130-400); RED BLOOD COUNT 2.21 M/mm3 (4.10-5.30); REDCELL DISTRIBUTION WIDTH-CV 21.2 % (11.5-14.5)
[2024-07-11 06:10] LABS: HEMATOCRIT 24.5 % (37.0-47.0); HEMOGLOBIN 7.5 g/dl (12.5-16.0); MEAN CORPUSCULAR HEMOGLOBIN 34 pg (27-31)
[2024-07-11 06:20] LABS: CALCIUM 7.4 mg/dL (8.4-10.2); CREATININE, serum 0.79 mg/dL (0.57-1.11); POTASSIUM 3.8 mEq/L (3.5-4.5)
[2024-07-11 06:28] LABS: BAND 1 % (0-10); LYMPHOCYTE 12 % (20.0-51.0); MYELOCYTE 2 % (0-0); NEUTROPHILS 74 % (42.0-75.2)
[2024-07-11 06:29] LABS: ANISOCYTOSIS 2+
[2024-07-11 06:30] LABS: PLATELET ESTIMATE NORMAL (NORMAL)
--- NOTE | 2024-07-11 06:45 | NUR ---
Pt had an uneventful night. Pt's BP MAP has been ranging 60's to 80's. When the MAP goes below 65 albumin was given and it was given twice throughout the night. Pt currently has IVF running at this time. Pt has some edema in the legs and arms. Pt's vitals were stable throughout the night. Pt is currently resting in bed with bed in low position and call light within reach.
[2024-07-11] MEDS ORDERED: Potassium Chloride 100 ML IV ONE (07:00)
--- NOTE | 2024-07-11 07:00 | NUR ---
Report received from SOURAV Alex; patient currently resting in bed with NS running through her right upper arm PICC. No other meds or fluids are running at this time. Patient has a Esposito catheter in place; no other lines or tubes are in place at this time. Patient is on room air; all vital signs are within normal limits this morning. Warm blanket given to patient who had just ordered breakfast; patient stable.
--- NOTE | 2024-07-11 14:15 | NUR ---
Reported off to SOURAV Wang; patient taken upstairs in wheelchair by this nurse. Patient's belongings were sent up with patient along with patient's chart. NS and Zosyn were running into patient's right upper arm PICC upon transfer; Esposito catheter was taken out prior to transfer. Patient's vital signs within normal limits; patient stable.
--- NOTE | 2024-07-11 15:00 | NUR ---
PATIENT ARRIVED FROM ICU, AWAKE ALERT AND ORIENTED. PATIENT DENIES ANY NEEDS AT THIS TIME. CALL LIGHT WITHIN REACH, FALL PRECAUTIONS IN PLACE.
--- NOTE | 2024-07-11 16:00 | NUR ---
PATIENT ASKS STAFFF TO DO MULTIPLE THINGS SUCH "MOVE HER LEG" AND "MOVE HER PILLOW" FOR HER. PATIENT HAD STAFF PULLING HER UP TO STAND AND 2 ASSIST TO A COMMODE. HOWEVER. THIS RN INFORMED PATIENT THAT SHE SHOULD BE ABLE TO DO MOST OF HER ADLS ON HER OWN, SHE IS FROM HOME. PATIENT WAS ABLE TO GO FROM SITTING ON THE EDGE OF THE BED TO STANDING WITH A WALKER INDEPENDENTLY. PATIENT WAS ABLE TO STAND AND PIVOT TO A COMMODE WITH STANDBY ASSIST. WHEN DONE THIS RN OFFERED THE PATIENT TOILET PAPER TO WIPE, HOWEVER SHE STATED "NO YOU HAVE TO CLEAN ME UP". WHEN I ASKED WHY, THE PATIENT RESPONDED THAT SHE CANNOT "REACH THEIR YET." PATIENT AWAKE AND ALERT, RESTING IN BED. CALL LIGHT WITHIN REACH. FALL PRECAUTIONS IN PLACE.
--- NOTE | 2024-07-11 17:07 | NUR ---
DESPITE MUCH ENCOURAGEMENT FROM STAFF PATIENT SEEMS RELUCTANT TO DO ANY ACTIVIITES FOR HERSELF. PATIENT CONTINIUES TO SAY SHE IS NOT READY. CALL LIGHT WTIHIN REACH/ FALL PRECAUTIONS IN PLACE.
[2024-07-11] MEDS ORDERED: Acetaminophen 500 MG TAB PO ONE (22:30)
[2024-07-12 04:00] VITALS: BP 129/91; PULSE 90; TEMP 97.7
[2024-07-12 07:27] VITALS: BP 138/85; PULSE 88; TEMP 98.2
[2024-07-12] MEDS ORDERED: Potassium Bicarbonate/Citrate 20 MEQ Effervescent TAB PO SCH (09:00)
--- NOTE | 2024-07-12 10:51 | NUR ---
LIU notified by Dr. Cortes that patient is near discharge ready. LIU met with patient in room to discuss discharge options. PT in room stating patient is refusing therapy and voiced their concerns for safety for patient to return home. LIU inquired if patient has talked with her daughter and what her options for discharge include. Patient stated her daughter doesn't know she is in hospital and was not agreeable to SW calling daughter. SW verified patient's insurance as [facility] marketplace. Patient stating she still wants [place] screen for inpatient detox. Patient stated her decision for SNF would be [facility] and [facility]. [facility]. [facility] faxed clinicals and received call back from [facility] stating that they do not do alcohol treatment placements. LUI will contact [facility], which patient states she has attended in the past, to inquire about placement. LIU faxed SNF referral to [facility] and [facility]. Discharge plan: Alcohol treatment vs SNF
--- NOTE | 2024-07-12 11:26 | NUR ---
PATIENT RESTING IN BED. MORNING MEDICATIONS ADMINISTERED. SHIFT ASSESSMENT COMPLETED. PATIENT FEELS SOB AFTER AMBULATING TO THE BATHROOM AND BACK TO BED. PICC LINE FLUSHES AND HAS BLOOD RETURN. DENIES ANY PAIN AT THIS TIME. CALL LIGHT WITHIN REACH, BED ALARMS IN PLACE. IVF INFUSING. WILL CONTINUE TO MONITOR.
[2024-07-12 11:27] VITALS: BP 138/92; PULSE 97; TEMP 97.8
[2024-07-12 15:22] VITALS: BP 132/84; PULSE 90; TEMP 98.5
[2024-07-12 20:00] VITALS: BP 129/91; PULSE 90; TEMP 97.7
[2024-07-12] MEDS ORDERED: traZODone 50 MG TAB PO SCH (21:00)
--- NOTE | 2024-07-12 21:45 | NUR ---
pt HELPED TO BEDSIDE COMMODE. NO GLOVE IN ROOM FOR ME TO ASSIST pt WITH TOILETING. TOLD pt I JUST NEEDED TO GRAB SOME GLOVES, I WOULD BE RIGHT BACK. I WENT TO QUICKLY GRAB A BOX OF GLOVES. pt TRIED TO GET UP AFTER I LEFT THE ROOM. pt FELL. pt ASKED IF SHE WAS HURT AND WHAT HAPPEN. pt STATED NO, SHE WAS NOT HURT. SHE TRIED TO GET UP, BUT DIDN'T KNOW WHY, BECAUSE SHE KNEW SHE SHOULDN'T HAVE GOTTEN UP BY HERSELF. HOSPITALIST CALLED. pt ASSESSED. A BUMP FOUND TO BACK OF THE pt's HEAD FOUND. pt STATED SHE HAD THE BUMP BEFORE THE FALL. HOSPITALIST MADE AWARE OF BUMP TO BACK OF pt's HEAD. NO NEW ORDERS GIVEN AT THIS TIME. pt HELPED UP AND INTO BED. FALL PRECAUTIONS IN PLACE. BED ALARM ON. CALL LIGHT WITHIN REACH.
[2024-07-13] VITALS: BP 127/92; PULSE 98; TEMP 98.1
[2024-07-13 04:00] VITALS: BP 124/91; PULSE 100; TEMP 98.2
[2024-07-13 07:24] VITALS: BP 98/64; PULSE 90; TEMP 98.7
[2024-07-13] MEDS ORDERED: Potassium Bicarbonate/Citrate 20 MEQ Effervescent TAB PO SCH (08:00)
--- NOTE | 2024-07-13 08:30 | NUR ---
PATIENT RESTING IN BED UPON ENTERING ROOM. MORNING MEDICATIONS ADMINISTERED, SHIFT ASSESSMENT COMPLETED. PATIENT HAS PITTING EDEMA AND DYSPNEA ON EXERCTION. APPEARANCE IS STILL VERY JAUNDICE. PATIENT AMBULATES AROUND ROOM WITH SOME ASSISTANCE. PATIENT SAT UP IN RECLINER FOR BREAKFAST. PICC LINE FLUSHES AND HAS BLOOD RETURN. BED/CHAIR ALARMS IN PLACE, CALL LIGHT WITHIN REACH. UPDATED ON PLAN OF CARE. PATIENT IS REQUESTING THAT ALL FOUR BEDRAILS BE UP SO SHE CAN REPOSITION HERSELF IN BED. WILL CONTINUE TO MONITOR.
[2024-07-13] MEDS ORDERED: Ibuprofen 200 MG TAB PO ONE (09:15)
[2024-07-13] MEDS ORDERED: Albumin (Human) 25 G/100 ML IVPB IV SCH (09:30)
[2024-07-13 11:37] VITALS: BP 127/86; PULSE 92; TEMP 97.4
--- NOTE | 2024-07-13 12:49 | NUR ---
PATIENT HAS SOME WHEEZING AND STATES SHE FEELS SOA. O2 SATURATION AT 95% ON ROOM AIR. THIS RN PLACED PATIENT ON 2L O2 VIA NC FOR COMFORT AND WILL CONTINUE TO MONITOR.
--- NOTE | 2024-07-13 15:08 | NUR ---
Ashley at [facility] declined referral. Tan at [facility] advised they can accept, however will need insurance authorization. LIU Hogue sent updates to Tan via secure email. Discharge Plan: [facility] pending auth
[2024-07-13 15:46] VITALS: BP 135/87; PULSE 95; TEMP 98.1
[2024-07-13 19:11] VITALS: BP 141/87; PULSE 89; TEMP 98
--- NOTE | 2024-07-13 20:25 | NUR ---
PATIENT C/O OF RT LOWER ABDOMINAL PAIN. PATIENT IS CURRENTLY AFEBRILE WITH NO REBOUND PAIN OR PSOAS REACTION TO RT LOWER QUADRANT. PATIENT C/O OF DIEZ WELL. NEUROS ARE WNL. VS ARE WNL. PATIENT C/O OF INSOMINA WELL. CALL PLACED TO HOSPITALIST-HOSPITALIST ASKED TO CALL BACK HE WAS BEDSIDE WITH PATIENT IN NEED.
--- NOTE | 2024-07-13 20:30 | NUR ---
UPON SHIFT ASSESSMENT, PATIENT WAS AWAKE IN BED AND AXO X 4. SKIN IS JAUNDICE AND DIFFUSE EDEMA NOTED IN ABDOMEN, BLLE AND BUE. PATIENT DIURESIS WELL WITH ALBUMIN. VS ARE WNL. RENEE IS NOTED WHEN PIVOTING TO BEDSIDE COMMODE. LUNG SOUNDS ARE DIMINSHED IN ALL LOBES. PATIENT DENIES CHEST PAIN.CALL LIGHT WITHIN REACH AND BED ALARM ON.
[2024-07-14] VITALS (13 sets, daily range): BP systolic 114–143; BP diastolic 78–89; PULSE 86–101; TEMP 97.9–98.7
[2024-07-14] MEDS ORDERED: Acetaminophen 500 MG TAB PO PRN (01:00)
--- NOTE | 2024-07-14 04:12 | NUR ---
CALL PLACED TO HOSPITALISTYVES. NO LABS ORDERED FOR PATIENT SINCE 07/11. TORB-HOSPITALIST STATED WILL ORDER LABS.
--- NOTE | 2024-07-14 06:50 | NUR ---
appears to be sleeping, resp quiet and easy, bedside shift report received from Kelly, RN
[2024-07-14 07:05] LABS: MEAN CELL VOLUME 110 fl (80.0-100.0); MEAN CORPUSCULAR HGB CONC 32 g/dl (33.0-37.0); MEAN PLATELET VOLUME 11.4 fl (7.4-10.4); PLATELET COUNT 110 K/mm3 (130-400); RED BLOOD COUNT 2.09 M/mm3 (4.10-5.30); REDCELL DISTRIBUTION WIDTH-CV 21.5 % (11.5-14.5)
[2024-07-14 07:06] LABS: HEMOGLOBIN 7.3 g/dl (12.5-16.0); MEAN CORPUSCULAR HEMOGLOBIN 35 pg (27-31)
[2024-07-14 07:41] LABS: BILIRUBIN,TOTAL 10.7 mg/dL (0.2-1.2); CREATININE, serum 0.53 mg/dL (0.57-1.11); MAGNESIUM 1.2 mg/dL (1.6-2.6); PHOSPHOROUS 0.9 mg/dL (2.3-4.7); POTASSIUM 3.7 mEq/L (3.5-4.5); TOTAL PROTEIN 4.9 g/dl (6.2-8.1)
[2024-07-14 07:54] LABS: ANISOCYTOSIS 3+; BAND 4 % (0-10); EOSINOPHIL 2 % (0-4); LYMPHOCYTE 9 % (20.0-51.0); METAMYELOCYTE 3 % (0-0); MYELOCYTE 1 % (0-0); NEUTROPHILS 73 % (42.0-75.2); NUCLEATED RED BLOOD CELL 1 (0-6); PLATELET ESTIMATE NORMAL (NORMAL)
[2024-07-14 07:55] LABS: HYPOCHROMIA 1+
[2024-07-14] MEDS ORDERED: Potassium Bicarbonate/Citrate 20 MEQ Effervescent TAB PO SCH (08:00)
--- NOTE | 2024-07-14 08:45 | NUR ---
awake and ordering breakfast, ISABEL Forte student in to see patient, full assessment completed by this nurse, see interventions for further info, denies needs at this time
--- NOTE | 2024-07-14 09:30 | NUR ---
ambulating in potter with physical therapy,
--- NOTE | 2024-07-14 10:30 | NUR ---
sitting up on side of bed, MEDIA REPORTER in assisting with am hygiene, cocyx is without redness
[2024-07-14] MEDS ORDERED: Magnesium Sulfate 4 GM/50 ML IV SOLN IV ONE (11:15)
[2024-07-14] MEDS ORDERED: Furosemide 40 MG/4 ML VIAL IV ONE (11:15)
--- NOTE | 2024-07-14 11:15 | NUR ---
c/o headache and medicated with tylenol 500mg po, assisted up to bedsidecommode and voided qs, denies other needs
[2024-07-14] MEDS ORDERED: POTASSIUM PHOSHATE IV ONE (12:00)
[2024-07-14] MEDS ORDERED: NS IV ONE (12:00)
[2024-07-14] MEDS ORDERED: [UNRECOGNIZED DRUG - OTHER] IV ONE (12:00)
--- NOTE | 2024-07-14 13:05 | NUR ---
foundry worker emailed updated to Tan at [facility]. Discharge Plan: [facility] SNF- auth pending
--- NOTE | 2024-07-14 13:07 | NUR ---
assisted up to bedside commode, is moving easier each time she is up
--- NOTE | 2024-07-14 13:25 | NUR ---
Scientific Process Operator faxed clinical updates to Tan at [facility] who stated he did not submit for auth yesterday but would do this today.
[2024-07-14] MEDS ORDERED: Furosemide 40 MG/4 ML VIAL IV SCH (16:00)
--- NOTE | 2024-07-14 16:30 | NUR ---
has been assisted up to bedside commode several times, and continues to do beter independently each time, has ordered supper
--- NOTE | 2024-07-14 18:53 | NUR ---
bedside shift report given to Kelly RN
--- NOTE | 2024-07-14 19:52 | NUR ---
PATIENT C/O DIZZINESS. VS RE CHECK-ALL WNL AND AXO X 4. NEUROS WNL. WILL CONTINUE TO MONITOR.
--- NOTE | 2024-07-14 21:30 | NUR ---
UPON SHIFT ASSESSMENT PATIENT WAS AWAKE IN BED AND AXO X4. SHE COULD NOT TOLERATE PUREWICK AND STATED IT WAS UNCOMFORTABLE AND CAUSING VAGINAL IRRITATION-SHE IS OTHERWISE DIURESING WELL. SHE STILL APPEARS SIGNIFICANTLY JAUNDICE WITH GENERALIZED EDEMA WITH 3+ IN LOWER EXTREMITIES. VS ARE WNL. RENEE NOTED DURING LINEN CHANGE, WOB RETURNED TO WNL FOLLOWING REST. LUNG SOUNDS ARE CLEAR. NEUROS WNL WELL. CALL LIGHT WITHIN REACH. BED ALARM ON.
[2024-07-14] MEDS ORDERED: Melatonin 3 MG TAB PO PRN (21:45)
[2024-07-15] VITALS (12 sets, daily range): BP systolic 114–152; BP diastolic 76–96; PULSE 83–95; TEMP 97.6–98.2
--- NOTE | 2024-07-15 04:25 | NUR ---
CALL PLACED TO HOSPITALIST, BRYAN. PATIENT HAS SIGNIFICANT BRUSING IN LT SHOULDER WITH HEMATOMA AND PATIENT C/O OF 5/10 HEADACHE. TORB FOR LT SHOULDER XRAY AND 650MG ONE TIME DOSE TYLENOL GIVEN.
[2024-07-15] MEDS ORDERED: Acetaminophen 325 MG TAB PO ONE (04:30)
[2024-07-15 07:04] LABS: ALANINE AMINOTRANSFERASE 50 U/L (0-55); ALBUMIN 2.8 g/dL (3.4-4.8); ALKALINE PHOSPHATASE 188 U/L (40-150); ANION GAP 14 mmol/L (7-16); AST,SGOT 164 U/L (5-34); BLOOD UREA NITROGEN < 5 mg/dL (10-20); CHLORIDE 103 mEq/L (98-107); CREATININE, serum 0.58 mg/dL (0.57-1.11); GLUCOSE 92 mg/dL (70-99); MAGNESIUM 1.3 mg/dL (1.6-2.6); POTASSIUM 3.7 mEq/L (3.5-4.5); SODIUM 140 mEq/L (136-145); TOTAL PROTEIN 4.8 g/dl (6.2-8.1)
[2024-07-15] MEDS ORDERED: Potassium Bicarbonate/Citrate 20 MEQ Effervescent TAB PO SCH (08:15)
[2024-07-15] MEDS ORDERED: Magnesium Sulfate 8% 50 ML IV ONE (08:15)
--- NOTE | 2024-07-15 09:06 | NUR ---
Patient resting in bed, alert and oriented x 4, still very jaundice eyes and skin. States pain in her abdoment 05/11. Assessment completed, meds given. Supplements provided. Breakfast tray arriving. No further needs at this time. Call light within reach
[2024-07-15] MEDS ORDERED: Acetaminophen 500 MG TAB PO PRN (10:00)
[2024-07-15] MEDS ORDERED: Furosemide 40 MG/4 ML VIAL IV SCH (12:00)
--- NOTE | 2024-07-15 16:11 | NUR ---
Marine Mammal Trainer checked in with Tan at [facility] throughout the day, insurance auth is still pending. Tan did advise that patient would have roughly a $100 per day co pay. LIU provided this update to patient and she stated that it should be fine as long as she doesn't have to pay it all up front.
--- NOTE | 2024-07-15 20:00 | NUR ---
Pt. c/o stomach pain rated 6/10. Administered PRN tylenol and scheduled meds per MAR. Shift assessment complete. Pt. is jaundice in coloring. She has bruising to RUE. BLE are edemetous pitting +3. Noted expiratory wheezes across all lung [place] upon auscultation. Lungs are diminished at MARCO bases. Respirations are shallow but unlabored. Abdomen is distended and firm. Bowel sounds are active and pt. endorses passing flatus. All other findings WNL. No further complaints or requests at this time.
[2024-07-16] VITALS (11 sets, daily range): BP systolic 116–145; BP diastolic 73–94; PULSE 82–91; TEMP 97.9–98.2
--- NOTE | 2024-07-16 03:57 | NUR ---
Pt. rested in bed w/ eyes closed, respirations even and unlabored through most of the night. Pt. ambulates to BSC w/ walker & x1 assist. Voiding dark melissa colored urine. Pt. remains on 2L O2. VSS. No complaints or requests at this time.
--- NOTE | 2024-07-16 04:45 | NUR ---
AM labs drawn from PICC line. Good blood return/flushes well. Will monitor.
[2024-07-16 07:18] LABS: ALANINE AMINOTRANSFERASE 49 U/L (0-55); ALBUMIN 2.6 g/dL (3.4-4.8); ALKALINE PHOSPHATASE 180 U/L (40-150); ANION GAP 11 mmol/L (7-16); AST,SGOT 157 U/L (5-34); BILIRUBIN,TOTAL 10.3 mg/dL (0.2-1.2); CALCIUM 8.2 mg/dL (8.4-10.2); CHLORIDE 104 mEq/L (98-107); CREATININE, serum 0.56 mg/dL (0.57-1.11); GLUCOSE 77 mg/dL (70-99); MAGNESIUM 1.4 mg/dL (1.6-2.6); POTASSIUM 3.4 mEq/L (3.5-4.5); SODIUM 141 mEq/L (136-145); TOTAL PROTEIN 4.5 g/dl (6.2-8.1)
[2024-07-16 07:19] LABS: BLOOD UREA NITROGEN < 5 mg/dL (10-20)
[2024-07-16] MEDS ORDERED: Potassium Bicarbonate/Citrate 20 MEQ Effervescent TAB PO SCH (07:45)
--- NOTE | 2024-07-16 08:10 | NUR ---
Patient resting in bed, alert and oriented x 4. Complains of LASIX, she states "I do not want it anymore" "I do not like to go pee so frequently". Educated about the need to remove the excess of fluid from her body. Assessment completed, meds given. Pt later stated that if ordered lasix she would like a catheter sanz in place". Explained we have to wait for the provider. Pt assisted to restroom. No further needs at this time. Call light within reach.
[2024-07-16] MEDS ORDERED: Magnesium Sulfate 4 GM/50 ML IV SOLN IV ONE (09:45)
[2024-07-16] MEDS ORDERED: Furosemide 40 MG/4 ML VIAL IV ONE (09:45)
--- NOTE | 2024-07-16 14:32 | NUR ---
Patient assisted to come back to bed. Pillow placed in left side to keep her rotating from side to side.
--- NOTE | 2024-07-16 15:00 | NUR ---
Network Control Technician contacted Tan at [facility] who informed SW that insurance authorization is still pending. SW met with patient to discuss discharge plan. SW advised that if we cannot get insurance to approve, she will be discharged home. Patient stated she does have a friend that can check in on her. SW also discussed oxygen as patient is currently requiring it and may need it for home. Discharge Plan: SNF vs Home, pending insurance auth
--- NOTE | 2024-07-16 18:11 | NUR ---
Patient complains of headache, tylenol provided.
--- NOTE | 2024-07-16 20:01 | NUR ---
PATIENT IS RESTING IN BED. PRESENTLY ON 1L O2 VIA NASAL CANNULA. REPORTING SOME EPIGASTRIC PAIN WHICH SHE RATES 4/10. ASSISTED TO BEDSIDE COMMODE AND RETURNED TO BED. CALL LIGHT WITHIN REACH. BED IS LOCKED AND IN LOW POSITION.
[2024-07-17] VITALS (8 sets, daily range): BP systolic 111–122; BP diastolic 74–81; PULSE 79–89; TEMP 98.1–98.4
[2024-07-17 07:20] LABS: ALANINE AMINOTRANSFERASE 51 U/L (0-55); ALBUMIN 2.5 g/dL (3.4-4.8); ALKALINE PHOSPHATASE 182 U/L (40-150); ANION GAP 9 mmol/L (7-16); AST,SGOT 147 U/L (5-34); BILIRUBIN,TOTAL 10.8 mg/dL (0.2-1.2); CALCIUM 8.6 mg/dL (8.4-10.2); CHLORIDE 102 mEq/L (98-107); CREATININE, serum 0.55 mg/dL (0.57-1.11); GLUCOSE 88 mg/dL (70-99); MAGNESIUM 1.5 mg/dL (1.6-2.6); POTASSIUM 3.5 mEq/L (3.5-4.5); SODIUM 138 mEq/L (136-145); TOTAL PROTEIN 4.6 g/dl (6.2-8.1)
[2024-07-17 07:23] LABS: BLOOD UREA NITROGEN < 5 mg/dL (10-20)
[2024-07-17] MEDS ORDERED: Potassium Bicarbonate/Citrate 20 MEQ Effervescent TAB PO SCH (08:15)
[2024-07-17] MEDS ORDERED: MAG-OX 400400 MG/TAB PO (08:57)
[2024-07-17] MEDS ORDERED: LASIX 40MG TABL40 MG PO (08:58)
[2024-07-17] MEDS ORDERED: Magnesium Sulfate 8% 50 ML IV ONE (09:00)
--- NOTE | 2024-07-17 15:30 | NUR ---
Tape Folding Machine Operator spoke with Tan who stated insurance auth is still pending. Patient will be discharged home today. RT advised exercise oximetry was completed and patient does not need oxygen. SW met with patient and provided Medicare.gov list of agencies. Patient selected [facility]. LIU contacted Mike at [facility] and sent referral via secure email. Mike advised they can accept. Discharge Plan; Home with
--- NOTE | 2024-07-20 13:38 | NUR ---
edge worker confirmed with Mike at [facility] that they received the discharge orders. Mike states they have not been able to reach the patient and if they cannot reach her today, they will contact patient's primary care provider's office and request assistance.
== END 2024-07-17 16:25 | disposition home or self-care (01) | DRG 433 ==
LOC: COL.ER 08:59 → MEDICAL 11:38 → ICU 11:38 → MEDICAL 12:32
PROVIDERS: Family Medicine; Internal Medicine; Nurse Practitioner Primary Care; Physician Assistant; ADMIT Internal Medicine
PROC: 02HV33Z Insertion of Infusion Device into Superior Vena Cava, Percutaneous Approach (ICD-10-PCS; principal; 2024-07-08)
DX: K70.9 Alcoholic liver disease, unspecified (principal); G72.81 Critical illness myopathy; N17.9 Acute kidney failure, unspecified; I95.9 Hypotension, unspecified; R16.0 Hepatomegaly, not elsewhere classified; K76.0 Fatty (change of) liver, not elsewhere classified; E87.6 Hypokalemia; D64.9 Anemia, unspecified; G31.2 Degeneration of nervous system due to alcohol; F41.9 Anxiety disorder, unspecified; F32.A Depression, unspecified; E78.5 Hyperlipidemia, unspecified; G47.00 Insomnia, unspecified
CPT/HCPCS: A4314; C1751; J0692; J1940; J2060; J2405; J2470; J2543; J3475; J3480; J7030; J7040; J7060; J7120; P9047

== ENCOUNTER 2024-08-01 21:42 | Emergency (ER) | payer OTHER ==
[~2024-08-01] VITALS: Ht 162.6 cm; Wt 127.3 kg
[~2024-08-01 21:42] MED LIST changes: +COMPLETE MULTI1 TAB PO; +DESYREL DIVIDO150 M1 PO; +LASIX 40MG TABL40 MG PO; +MAG-OX 400400 MG/TAB PO
[2024-08-01] MEDS ORDERED: NS 1,000 ML IV ONE (22:15)
[2024-08-01 22:51] LABS: BASO # 0.1 K/mm3 (0.0-0.2); BASO % 0.7 % (0.0-2.0); EOS % 0.5 % (0.0-4.0); GRAN # 5.9 K/mm3 (1.4-6.5); GRAN % 66.6 % (42.2-75.2); LYMPH # 1.6 K/mm3 (1.2-3.4); LYMPH % 18.5 % (20.0-51.0); MEAN CELL VOLUME 112 fl (80.0-100.0); MEAN CORPUSCULAR HGB CONC 33 g/dl (33.0-37.0); MEAN PLATELET VOLUME 10.4 fl (7.4-10.4); MONO # 1.1 K/mm3 (0.1-0.6); MONO % 12.5 % (1.7-9.3); PLATELET COUNT 222 K/mm3 (130-400); RED BLOOD COUNT 2.48 M/mm3 (4.10-5.30); REDCELL DISTRIBUTION WIDTH-CV 18.8 % (11.5-14.5)
[2024-08-01 22:52] LABS: HEMATOCRIT 27.8 % (37.0-47.0); HEMOGLOBIN 9.2 g/dl (12.5-16.0); MEAN CORPUSCULAR HEMOGLOBIN 37 pg (27-31)
[2024-08-01 23:11] LABS: ALBUMIN 2.2 g/dL (3.4-4.8); BILIRUBIN,TOTAL 10.8 mg/dL (0.2-1.2); C-REACTIVE PROTEIN 4.2 mg/dL (0.00-0.50); CALCIUM 8.5 mg/dL (8.4-10.2); CREATININE, serum 0.58 mg/dL (0.57-1.11); MAGNESIUM 1.7 mg/dL (1.6-2.6); POTASSIUM 3.3 mEq/L (3.5-4.5)
[2024-08-01] MEDS ORDERED: Iohexol 300 - 100 ML VIAL IV ONE (23:48)
[2024-08-01] MEDS ORDERED: NS 50 ML IV SCH (23:48)
[2024-08-02 00:06] LABS: COLLECTION METHOD CLEAN CATCH
[2024-08-02 00:26] LABS: PH 6.5 (5.0-8.5); URINE APPEARANCE CLEAR (CLEAR/HAZY); URINE BLOOD NEGATIVE (NEGATIVE); URINE COLOR Dark Yellow (YELLOW); URINE GLUCOSE NEGATIVE (NEGATIVE); URINE KETONE NEGATIVE (NEGATIVE); URINE NITRATE NEGATIVE (NEGATIVE); URINE PROTEIN(semi-quant) TRACE (NEGATIVE)
[2024-08-02 02:34] LABS: INR 1.5 (0.8-3.0); PROTHROMBIN TIME 15.7 SECONDS (9.7-12.8)
[2024-08-02] MEDS ORDERED: NS 1,000 ML IV ONE (03:00)
[2024-08-02] MEDS ORDERED: Ondansetron 4 MG/2 ML VIAL IV ONE (06:46)
[2024-08-02 07:22] VITALS: BP 106/66; PULSE 104; TEMP 98.8
== END 2024-08-02 07:29 | disposition short-term general hospital (02) ==
LOC: COL.ER 21:42
PROVIDERS: Nurse Practitioner
DX: K81.0 Acute cholecystitis (principal); Z87.891 Personal history of nicotine dependence
CPT/HCPCS: J2405; J2543; J7030; Q9967

== ENCOUNTER 2024-09-12 20:46 | Emergency (ER) | payer OTHER ==
[~2024-09-12] VITALS: Ht 162.6 cm; Wt 97.7 kg
[2024-09-12 20:46] VITALS: TEMP 98.6
[~2024-09-12 20:46] MED LIST changes: +Iohexol 300 - 100 ML VIAL IV ONE; +NS 50 ML IV SCH
[2024-09-12 21:14] LABS: BASO % 0.4 % (0.0-2.0); EOS # 0.1 K/mm3 (0.0-0.7); EOS % 0.7 % (0.0-4.0); GRAN # 2.6 K/mm3 (1.4-6.5); GRAN % 38.2 % (42.2-75.2); LYMPH # 3.2 K/mm3 (1.2-3.4); LYMPH % 47.7 % (20.0-51.0); MEAN CELL VOLUME 99 fl (80.0-100.0); MEAN CORPUSCULAR HGB CONC 32 g/dl (33.0-37.0); MEAN PLATELET VOLUME 10.7 fl (7.4-10.4); MONO # 0.8 K/mm3 (0.1-0.6); MONO % 12.4 % (1.7-9.3); PLATELET COUNT 105 K/mm3 (130-400); RED BLOOD COUNT 3.12 M/mm3 (4.10-5.30); REDCELL DISTRIBUTION WIDTH-CV 16.1 % (11.5-14.5)
[2024-09-12 21:15] LABS: HEMATOCRIT 30.9 % (37.0-47.0); HEMOGLOBIN 9.8 g/dl (12.5-16.0); MEAN CORPUSCULAR HEMOGLOBIN 31 pg (27-31)
[2024-09-12 21:27] LABS: ALBUMIN 2.4 g/dL (3.4-4.8); BILIRUBIN,TOTAL 3.3 mg/dL (0.2-1.2); CALCIUM 8.4 mg/dL (8.4-10.2); CREATININE, serum 0.59 mg/dL (0.57-1.11); MAGNESIUM 1.6 mg/dL (1.6-2.6); POTASSIUM 3.6 mEq/L (3.5-4.5); TOTAL PROTEIN 7.3 g/dl (6.2-8.1)
[2024-09-12 21:33] LABS: TROPONIN-I 0.015 ng/mL (0.00-0.033)
[2024-09-12 21:45] LABS: COLLECTION METHOD CLEAN CATCH
[2024-09-12 22:07] LABS: URINE APPEARANCE CLOUDY (CLEAR/HAZY); URINE BLOOD NEGATIVE (NEGATIVE); URINE COLOR Dark Yellow (YELLOW); URINE GLUCOSE NEGATIVE (NEGATIVE); URINE KETONE 1+ (NEGATIVE); URINE NITRATE NEGATIVE (NEGATIVE); URINE PROTEIN(semi-quant) 2+ (NEGATIVE)
[2024-09-12 22:33] LABS: SQUAMOUS EPITHELIAL 20-50 /hpf (0-10); URINE CALCIUM OXALATE CRYSTAL PRESENT (NOT PRESENT); URINE RBC 0-2 /hpf (0-2)
[2024-09-12 22:34] LABS: BUDDING YEAST PRESENT (NOT PRESENT); MUCOUS PRESENT (NOT PRESENT); URINE BACTERIA MANY /hpf (NONE SEEN)
[2024-09-12] MEDS ORDERED: Morphine 4 MG/ML VIAL IV ONE (23:30)
[2024-09-13 02:06] VITALS: BP 105/78; PULSE 92
== END 2024-09-13 02:06 | disposition home or self-care (01) ==
LOC: COL.ER 20:46
PROVIDERS: Emergency Medicine
DX: K29.20 Alcoholic gastritis without bleeding (principal)
CPT/HCPCS: J2270; Q9967

== ENCOUNTER 2024-09-15 13:25 | Emergency (ER) | payer OTHER ==
[~2024-09-15] VITALS: Ht 162.6 cm; Wt 100.0 kg
[~2024-09-15 13:25] MED LIST changes: -Iohexol 300 - 100 ML VIAL IV ONE; -NS 50 ML IV SCH
[2024-09-15 13:30] VITALS: TEMP 97.9
[2024-09-15] MEDS ORDERED: NS 1,000 ML IV ONE (13:45)
[2024-09-15 14:23] LABS: BASO % 0.4 % (0.0-2.0); EOS % 0.5 % (0.0-4.0); GRAN # 2.1 K/mm3 (1.4-6.5); GRAN % 38.4 % (42.2-75.2); LYMPH # 2.6 K/mm3 (1.2-3.4); LYMPH % 46.2 % (20.0-51.0); MEAN CELL VOLUME 97 fl (80.0-100.0); MEAN CORPUSCULAR HGB CONC 33 g/dl (33.0-37.0); MEAN PLATELET VOLUME 10.4 fl (7.4-10.4); MONO # 0.8 K/mm3 (0.1-0.6); MONO % 13.6 % (1.7-9.3); PLATELET COUNT 80 K/mm3 (130-400); RED BLOOD COUNT 2.75 M/mm3 (4.10-5.30); REDCELL DISTRIBUTION WIDTH-CV 16.9 % (11.5-14.5)
[2024-09-15 14:24] LABS: HEMATOCRIT 26.7 % (37.0-47.0); HEMOGLOBIN 8.7 g/dl (12.5-16.0); MEAN CORPUSCULAR HEMOGLOBIN 32 pg (27-31)
[2024-09-15 14:36] LABS: ALBUMIN 2.4 g/dL (3.4-4.8); BILIRUBIN,TOTAL 3.4 mg/dL (0.2-1.2); CALCIUM 8.3 mg/dL (8.4-10.2); CREATININE, serum 0.63 mg/dL (0.57-1.11); POTASSIUM 3.3 mEq/L (3.5-4.5); TOTAL PROTEIN 6.8 g/dl (6.2-8.1)
[2024-09-15 16:45] VITALS: BP 130/74; PULSE 96
== END 2024-09-15 16:58 | disposition home or self-care (01) ==
LOC: COL.ER 13:25
PROVIDERS: Physician Assistant
DX: K29.20 Alcoholic gastritis without bleeding (principal); F10.20 Alcohol dependence, uncomplicated
CPT/HCPCS: J7030